=== PATIENT | female | born 1955 | race African-American/Black ===

== ENCOUNTER 2017-10-20 16:29 | Emergency (ER) | payer OTHER ==
[~2017-10-20] VITALS: Ht 162.6 cm; Wt 77.1 kg
[2017-10-20] MEDS ORDERED: OXYCODONE HCL 55 MG PO (17:29)
== END 2017-10-20 18:03 | disposition home or self-care (01) ==
LOC: ER 16:29
DX: M79.652 Pain in left thigh (principal)

== ENCOUNTER → 2018-03-14 | Outpatient (CLI) | payer OTHER, MEDICARE ==
[~2018-03-14] MED LIST: OXYCODONE HCL 55 MG PO
== END | disposition home or self-care (01) ==
LOC: RAD 10:27
DX: M51.36 Other intervertebral disc degeneration, lumbar region (principal); M43.16 Spondylolisthesis, lumbar region; M41.86 Other forms of scoliosis, lumbar region; M48.061 Spinal stenosis, lumbar region without neurogenic claudication; G89.29 Other chronic pain; Z79.899 Other long term (current) drug therapy; Z98.890 Other specified postprocedural states